=== PATIENT | female | born 1980 | race Caucasian/White ===

== ENCOUNTER 2023-10-28 13:29 | Emergency (ER) | payer BC, SELFPAY ==
[2023-10-28 13:32] VITALS: BP 105/61; PULSE 81; RESP 18; TEMP 36.4; O2SAT 97; BMI 41.0
--- NOTE | 2023-10-28 14:43 | CT_ITS ---
FINAL REPORT CLINICAL HISTORY: R flank pain, known cyst COMPARISON: None FINDINGS: CT OF THE ABDOMEN AND PELVIS WITH CONTRAST Axial CT images of the abdomen and pelvis were obtained after the administration of IV contrast. Coronal and sagittal reformatted images were also obtained and reviewed. This study was performed with techniques to keep radiation doses as low as reasonably achievable (ALARA). Individualized dose reduction techniques using automated exposure control or adjustment of mA and/or kV according to the patient's size were employed. Abdomen: There is mild atelectasis in the left lung base.. The heart is normal in size. The liver has an unremarkable appearance, without evidence of mass or biliary ductal dilatation. The spleen is unremarkable. No adrenal mass is present. The pancreas has an unremarkable appearance. There are bilateral small nonobstructing renal stones measuring up to 4 mm in size. No evidence of hydronephrosis is seen. There is a 12 mm cyst present in the anterior aspect of the right kidney. The aorta is normal in caliber. There is no free fluid or adenopathy. No mass or abnormal fluid collection is seen. Pelvis: The appendix is normal in appearance. The urinary bladder is unremarkable. No inflammatory process is seen. There are several borderline in size inguinal nodes present, nonspecific. The uterus has been surgically resected. There is no evidence of bowel obstruction. IMPRESSION: Bilateral small nonobstructing renal stones measuring up to 4 mm in size, without evidence of hydronephrosis. 12 mm cyst anterior aspect right kidney. Several borderline in size inguinal nodes bilateral. Reviewed, Interpreted and Dictated by Joey Cook III, MD Transcribed by Opal Rojas Authenticated and [facility]
--- NOTE | 2023-10-28 14:44 | HMH.EDGENADL ---
Discharge Plan Disposition Patient Disposition: Home, Self-Care Prescriptions Prescriptions: New nystatin 100,000 unit/gram cream 1 applic topical BID Qty: 15 0RF No Action citalopram 20 mg tablet 20 mg PO DAILY topiramate [Trokendi XR] 50 mg capsule,extended release 24hr PO DAILY levothyroxine [Synthroid] 125 mcg tablet 125 mcg PO DAILY Otezla 30 mg tablet PO BID omeprazole 40 mg capsule,delayed release(DR/EC) 40 mg PO DAILY meloxicam 15 mg tablet 15 mg PO DAILY buspirone 7.5 mg tablet 7.5 mg PO BID PRN (Reason: anxiety) yhutstgmyinctbl-tokdtmmoa-VU [Bromfed DM] 2-30-10 mg/5 mL syrup 10 ml PO Q4-6H PRN (Reason: cold symptoms) Qty: 118 1RF prednisone 10 mg tablets,dose pack See Rx Instructions PO PER PKG DIR Qty: 21 0RF Rx Instructions: PO PER PKG DIR cephalexin 500 mg capsule 500 mg PO BID 10 Days Qty: 20 0RF Referrals Follow up/Referrals: Janie Narayanan APRN [Primary Care Provider] - See instructions Activity Restrictions/Add. Instructions Additional Instructions/Restrictions: Apply the prescribed nystatin cream to the skin between the breasts as directed. As discussed, talk to your psoriasis doctor about further management of yeast infection on the skin in this area. Call your family doctor to establish care for this visit to the emergency department and schedule follow-up within 48 hours to ensure improvement. If you have any worsening of your condition or any other concerning signs or symptoms, return to the emergency department or your primary care doctor for further evaluation. Clinical Impressions Clinical Impression: Acute abdominal pain in right flank, Yeast dermatitis Stand Alone Forms Stand Alone Forms: Work/School Release Discharge ED Provider: Ankush Mascorro General Adult HPI <Del Mccann MD - Last Filed: 10/28/23 15:44> General Chief complaint: PAIN Stated complaint: pain in right side and pelvis Time Seen by Provider: 10/28/23 14:27 Mode of Arrival: Ambulatory Source of Information: Patient Limitations: No Limitations Description of Symptoms (Recalled from ER Triage Doc. by RN): Patient complaint of ongoing right rib and pelvic pain. States she has a cyst on her kidney and has been dealing with this pain since May. States her pain got worse on Tuesday. History of Present Illness HPI narrative: 43-year-old female presents to the ER for evaluation of right flank pain. Patient also states she has mild right lower quadrant pain. Patient states she was diagnosed with a cyst on her kidney back in May but she was not able to have follow-up so she does not know what has happened with it. Patient states her pain has been progressive since Tuesday. She states her right ribs lower are tender to the touch. She also states she is having pain with peeing but no blood in the urine. She states she recently had strep with made her psoriasis flareup. She states she has significant rash between her breasts which is different than her psoriasis rash. Patient states her right lower quadrant is mildly painful as well. She is not having any nausea, vomiting, or diarrhea. Related Data Home Medications Medication Instructions Recorded Confirmed apremilast 30 mg tablet (Otezla) mg PO BID psoriatic arthritis 09/29/23 10/11/23 buspirone 7.5 mg tablet 7.5 mg PO BID PRN anxiety 09/29/23 10/11/23 citalopram 20 mg tablet 20 mg PO DAILY anxiety/depression 09/29/23 10/11/23 levothyroxine 125 mcg tablet 125 mcg PO DAILY thyroid 09/29/23 10/11/23 (Synthroid) meloxicam 15 mg tablet 15 mg PO DAILY Arthritis 09/29/23 10/11/23 omeprazole 40 mg capsule,delayed 40 mg PO DAILY GERD 09/29/23 10/11/23 release topiramate 50 mg capsule,extended mg PO DAILY migraines 09/29/23 10/11/23 release 24 hr (Trokendi XR) Previous Rx's Medication Instructions Recorded wemoczkiibthsqr-vfclntxcfmylgrx-NT 10 ml PO Q4-6H PRN cold symptoms 10/03/23 2 mg-30 mg-10 mg/5 mL oral syrup #118 mL (Bromfed DM) cephalexin 500 mg capsule 500 mg PO BID 10 days #20 caps 10/11/23 prednisone 10 mg tablets in a dose See Rx Instructions PO PER PKG DIR 10/11/23 pack #21 tabs nystatin 100,000 unit/gram topical 1 applic topical BID #15 grams 10/28/23 cream Allergies Allergy/AdvReac Type Severity Reaction Status Date / Time AMOXICILLIN Allergy Intermediate I-RASH Uncoded 09/29/23 10:17 PENICILLIN Allergy Intermediate I-RASH Uncoded 09/29/23 10:17 [facility] <Del Mccann MD - Last Filed: 10/28/23 15:44> [facility] Disclaimer: The information contained in this section may have been updated after the patient was seen, as this information can be updated by other users. Medical History Anxiety Depression GERD (gastroesophageal reflux disease) Migraines Thyroid nodule Surgical History H/O adenoidectomy H/O hernia repair 2005 H/O partial thyroidectomy History of x4 History of cholecystectomy History of hysterectomy 1999 History of placement of ear tubes History of tonsillectomy Family History Mother Diabetes Hypertension Stroke Father Diabetes Hypertension Social History Smoking Status: Current every day smoker tobacco type: e-cigarettes alcohol intake: never substance use type: denies use and former substance user current occupational status: employed Travel in the last 8 weeks: None household members: spouse, children and other housing: house marital status: <Del Mccann MD - Last Filed: 10/28/23 15:44> ROS Obtained: Yes All systems reviewed & no additional complaints except as documented Constitutional Constitutional: Denies chills, Denies fever(s), Denies headache(s) and Denies weakness Eyes Eyes: Denies change in vision ENT Ears, Nose, Mouth, and Throat: Denies dizziness, Denies headache(s), Denies nasal congestion and Denies sore throat Cardiovascular Cardiovascular: Denies chest pain, Denies dyspnea and Denies leg edema Respiratory Respiratory: Denies cough and Denies dyspnea Gastrointestinal Gastrointestingal: Reports abdominal pain; Denies constipation, diarrhea, nausea or vomiting Genitourinary Female Genitourinary: Reports dysuria and Reports flank pain Musculoskeletal Musculoskeletal: Denies arthralgias, Denies myalgias, Denies numbness and Denies tingling Integumentary/Breasts Skin/Breast: Denies change in pigmentation Neurologic Neurologic: Denies dizziness, Denies headache(s), Denies numbness, Denies tingling and Denies weakness Physical Exam <Del Mccann MD - Last Filed: 10/28/23 15:44> General General appearance: alert and in no apparent distress Head Head exam: atraumatic and normocephalic Eye Eye exam: Present PERRL and EOMI ENT ENT exam: Present mucous membranes moist Neck Neck exam: Present normal inspection and full ROM Chest Chest inspection: Present symmetric chest wall rise and tenderness (Right inferior, lateral chest wall tenderness) Respiratory Respiratory exam: Absent respiratory distress or stridor Cardiovascular Cardiovascular exam: Present regular rate and normal rhythm Abdominal Exam Abdominal exam: Present soft and tenderness (Right lower quadrant and right upper quadrant); Absent distention, guarding or rebound Extremities Exam Extremities exam: Present full ROM Back Exam Back exam: Present CVA tenderness (R); Absent CVA tenderness (L) Neurological Exam Neurological exam: Present alert and oriented X3; Absent motor sensory deficit Psychiatric Psychiatric exam: Present normal affect and normal mood Skin Skin exam: Present warm, dry and rash (Significant psoriatic rash all over the body, patient has findings of yeast dermatitis between the breasts) Medical Decision Making <Del Mccann MD - Last Filed: 10/28/23 15:44> Robin Inquiry Pt receiving controlled substance: No Vital Signs: 10/28/23 13:32 10/28/23 16:30 10/28/23 17:38 Temperature 97.6 F 97.6 F Temperature Source Oral Oral Pulse Rate 77 77 Pulse Rate [Radial] 81 Respiratory Rate 18 12 12 Blood Pressure 95/46 L 95/46 L Blood Pressure [Right Arm] 105/61 L Blood Pressure Mean [Right Arm] 75 Blood Pressure Source Automatic Cuff Blood Pressure Source [Right Arm] Automatic Cuff Blood Pressure Position Sitting Blood Pressure Position [Right Arm] Sitting 02 Sat by Pulse Oximetry 97 97 Oxygen Delivery Method Room Air Room Air Room Air Lab Data Lab Results 10/28/23 14:49: WBC 8.7, RBC 4.46, Hgb 12.8, Hct 37.0, MCV 83.0, MCH 28.7, MCHC 34.6, RDW 14.6, Plt Count 277, MPV 7.6, Neut % (Auto) 67.1, Lymph % (Auto) 24.9, [place] % (Auto) 3.4, Eos % (Auto) 4.3, Baso % (Auto) 0.3, Neut # (Auto) 5.8, Lymph # (Auto) 2.2, [place] # (Auto) 0.3, Eos # (Auto) 0.4, Baso # (Auto) 0.0, Sodium 140, Potassium 3.9, Chloride 111 H, Carbon Dioxide 26, Anion Gap 6.9, BUN 15, Creatinine 0.70, Estimated Creat Clear 177, Estimated GFR 91, Est GFR ( Amer) 111, Glucose 126 H, Calcium 8.6, Total Bilirubin 0.5, AST 26, ALT 26, Alkaline Phosphatase 105, Total Protein 7.1, Albumin 3.9, Globulin 3.2, Albumin/Globulin Ratio 1.2 10/28/23 15:00: Urine Color Yellow, Urine Appearance Clear, Urine pH 7.5, Ur Specific [place] 1.020, Urine Protein Negative, Urine Glucose (UA) Negative, Urine Ketones Negative, Urine Blood Negative, Urine Nitrate Negative, Urine Bilirubin Negative, Urine Urobilinogen 0.2, Ur Leukocyte Esterase Negative, Urine RBC Occasional, Urine WBC Occasional, Ur Squamous Epith Cells Occasional, Amorphous Sediment 2+, Urine Bacteria Trace 10/28/23 14:49 10/28/23 14:49 Orders (Tests/Meds): ED MEDICATIONS Discontinued Medications Generic Name Dose Route Start Last Admin Trade Name Sandeepq PRN Reason Stop Dose Admin Lactated Ringer's 1,000 mls @ 999 mls/hr 10/28/23 14:43 10/28/23 15:00 Lactated Ringer's 1000 Ml Bag IV 10/28/23 15:43 999 mls/hr .Q1H1M ONE Administration Iopamidol 75 ml 10/28/23 15:19 10/28/23 15:19 Iopamidol-370 (76%);100ml Bottle IV 10/28/23 15:20 75 ml ONCE ONE Administration Ketorolac Tromethamine 15 mg 10/28/23 14:43 10/28/23 15:00 Ketorolac 30mg/Ml Vial IV 10/28/23 14:44 15 mg ONCE ONE Administration Sodium Chloride 10 ml 10/28/23 15:19 Sodium Chloride 0.9% 10ml Syr (Rad Only) IV 11/27/23 15:18 NEEDED PRN Maintain IV Site ORDERS Category Date Time Status CT abdomen pelvis w con Stat Cat Scan 10/28/23 14:43 Completed CBC w/Auto Diff [Complete Blood Count Auto Diff] Stat Lab 10/28/23 14:49 Completed CMP [Comprehensive Metabolic Panel] Stat Lab 10/28/23 14:49 Completed Urinalysis and Microscopic Stat Lab 10/28/23 15:00 Completed Medical Decision Narrative: In summary, this 43year old female presents to the emergency department today with right flank/right lower quadrant abdominal pain. On initial evaluation patient is hemodynamically stable, afebrile, exam notable for right upper quadrant and right lower quadrant tenderness to palpation without guarding or rebound, nonacute abdomen, right CVA tenderness and superficial right inferior lateral rib tenderness. Patient also has significant psoriatic rash over large portions of the body but also has findings of yeast dermatitis between the breasts. Differential diagnosis includes but is not limited to renal cyst, nephrolithiasis, pyelonephritis, urinary tract infection, appendicitis, colitis. Based on these concerns, I ordered urine studies, CT imaging, basic labs. Patient received Toradol, IV fluids for treatment. Labs personally reviewed demonstrate no leukocytosis or anemia, CBC normal, CMP with mild hyperchloremia, nonspecific, nonactionable, no findings of kidney dysfunction or liver dysfunction. UA pending. CT abdomen personally interpreted does demonstrate calcifications within the region of the terminal ileum, potentially appendicolith. She also has 2 abnormalities on the right kidney that appear cystic. Radiology read is pending at the time of physician handoff. Patient handed off to Dr. Mascorro at physician handoff for further management and disposition pending urinalysis and CT imaging results. <Ankush Mascorro MD - Last Filed: 10/28/23 18:06> Vital Signs: 10/28/23 13:32 10/28/23 16:30 10/28/23 17:38 Temperature 97.6 F 97.6 F Temperature Source Oral Oral Pulse Rate 77 77 Pulse Rate [Radial] 81 Respiratory Rate 18 12 12 Blood Pressure 95/46 L 95/46 L Blood Pressure [Right Arm] 105/61 L Blood Pressure Mean [Right Arm] 75 Blood Pressure Source Automatic Cuff Blood Pressure Source [Right Arm] Automatic Cuff Blood Pressure Position Sitting Blood Pressure Position [Right Arm] Sitting 02 Sat by Pulse Oximetry 97 97 Oxygen Delivery Method Room Air Room Air Room Air Lab Data Lab Results 10/28/23 14:49: WBC 8.7, RBC 4.46, Hgb 12.8, Hct 37.0, MCV 83.0, MCH 28.7, MCHC 34.6, RDW 14.6, Plt Count 277, MPV 7.6, Neut % (Auto) 67.1, Lymph % (Auto) 24.9, [place] % (Auto) 3.4, Eos % (Auto) 4.3, Baso % (Auto) 0.3, Neut # (Auto) 5.8, Lymph # (Auto) 2.2, [place] # (Auto) 0.3, Eos # (Auto) 0.4, Baso # (Auto) 0.0, Sodium 140, Potassium 3.9, Chloride 111 H, Carbon Dioxide 26, Anion Gap 6.9, BUN 15, Creatinine 0.70, Estimated Creat Clear 177, Estimated GFR 91, Est GFR ( Amer) 111, Glucose 126 H, Calcium 8.6, Total Bilirubin 0.5, AST 26, ALT 26, Alkaline Phosphatase 105, Total Protein 7.1, Albumin 3.9, Globulin 3.2, Albumin/Globulin Ratio 1.2 10/28/23 15:00: Urine Color Yellow, Urine Appearance Clear, Urine pH 7.5, Ur Specific [place] 1.020, Urine Protein Negative, Urine Glucose (UA) Negative, Urine Ketones Negative, Urine Blood Negative, Urine Nitrate Negative, Urine Bilirubin Negative, Urine Urobilinogen 0.2, Ur Leukocyte Esterase Negative, Urine RBC Occasional, Urine WBC Occasional, Ur Squamous Epith Cells Occasional, Amorphous Sediment 2+, Urine Bacteria Trace Orders (Tests/Meds): ED MEDICATIONS Discontinued Medications Generic Name Dose Route Start Last Admin Trade Name Tania PRN Reason Stop Dose Admin Lactated Ringer's 1,000 mls @ 999 mls/hr 10/28/23 14:43 10/28/23 15:00 Lactated Ringer's 1000 Ml Bag IV 10/28/23 15:43 999 mls/hr .Q1H1M ONE Administration Iopamidol 75 ml 10/28/23 15:19 10/28/23 15:19 Iopamidol-370 (76%);100ml Bottle IV 10/28/23 15:20 75 ml ONCE ONE Administration Ketorolac Tromethamine 15 mg 10/28/23 14:43 10/28/23 15:00 Ketorolac 30mg/Ml Vial IV 10/28/23 14:44 15 mg ONCE ONE Administration Sodium Chloride 10 ml 10/28/23 15:19 Sodium Chloride 0.9% 10ml Syr (Rad Only) IV 11/27/23 15:18 NEEDED PRN Maintain IV Site ORDERS Category Date Time Status CT abdomen pelvis w con Stat Cat Scan 10/28/23 14:43 Completed CBC w/Auto Diff [Complete Blood Count Auto Diff] Stat Lab 10/28/23 14:49 Completed CMP [Comprehensive Metabolic Panel] Stat Lab 10/28/23 14:49 Completed Urinalysis and Microscopic Stat Lab 10/28/23 15:00 Completed Medical Decision Narrative: In summary, this 43year old female presents to the emergency department today with right flank/right lower quadrant abdominal pain. On initial evaluation patient is hemodynamically stable, afebrile, exam notable for right upper quadrant and right lower quadrant tenderness to palpation without guarding or rebound, nonacute abdomen, right CVA tenderness and superficial right inferior lateral rib tenderness. Patient also has significant psoriatic rash over large portions of the body but also has findings of yeast dermatitis between the breasts. Differential diagnosis includes but is not limited to renal cyst, nephrolithiasis, pyelonephritis, urinary tract infection, appendicitis, colitis. Based on these concerns, I ordered urine studies, CT imaging, basic labs. Patient received Toradol, IV fluids for treatment. Labs personally reviewed demonstrate no leukocytosis or anemia, CBC normal, CMP with mild hyperchloremia, nonspecific, nonactionable, no findings of kidney dysfunction or liver dysfunction. UA pending. CT abdomen personally interpreted does demonstrate calcifications within the region of the terminal ileum, potentially appendicolith. She also has 2 abnormalities on the right kidney that appear cystic. Radiology read is pending at the time of physician handoff. Patient handed off to Dr. Mascorro at physician handoff for further management and disposition pending urinalysis and CT imaging results. Subha: I assume primary responsibility for this patient after signout from previous physician. On my evaluation, patient sitting comfortably in chair, on her phone, no acute complaints. Hemodynamically stable, afebrile, normotensive. Independently interpreted workup, nonactionable CBC or chemistry. Urinalysis unconcerning. CT abdomen pelvis with no acute actionable findings, but she does have appendicolith without distal appendicitis, intrarenal kidney stones without obstruction, and right renal cysts. These were relayed to patient. Because patient at baseline without signs or symptoms of clinical decompensation, deemed appropriate for discharge. Results were relayed to patient who voiced understanding and were agreeable to outpatient management and follow up. At the time of discharge the patient was hemodynamically stable, tolerating PO, and mobilizing appropriately. Critical Care <Del Mccann MD - Last Filed: 10/28/23 15:44> Critical Care Time Critical Care Time: No
[2023-10-28 14:58] LABS: Basophils % 0.3 % (0.1-2.0); Eosinophils # 0.4 K/mm3 (0.0-0.4); Eosinophils % 4.3 % (0.1-12.0); Hemoglobin 12.8 g/dL (12.2-16.2); Lymphocytes # 2.2 K/mm3 (0.7-4.5); Lymphocytes % 24.9 % (10-50); Mean Corpuscular HGB Conc 34.6 g/dL (31.8-35.4); Mean Corpuscular Hemoglobin 28.7 pg (27.0-31.2); Mean Platelet Volume 7.6 fl (7.4-10.4); Monocytes # 0.3 K/mm3 (0.1-1.0); Monocytes % 3.4 % (1.7-9.3); Neutrophils # 5.8 K/mm3 (1.8-7.8); Neutrophils % 67.1 % (37.0-80.0); Platelet Count 277 K/mm3 (142-424); Red Blood Count 4.46 M/mm3 (4.20-5.40); Red Cell Distribution Width 14.6 % (11.5-17.5); White Blood Count 8.7 K/mm3 (4.8-10.8)
[2023-10-28] MEDS: KETOROLAC 30MG/ML VIAL 15 MG IV (15:00)
[2023-10-28] MEDS: LACTATED RINGERS 1000ML 1,000 ML 999 ML IV (15:00)
[2023-10-28 15:02] LABS: Chloride 111 mmol/L (98-107); Potassium 3.9 mmoL/L (3.5-5.1); Sodium 140 mmol/L (136-145)
[2023-10-28 15:05] LABS: Alanine Aminotransferase 26 U/L (12-78); Albumin Level 3.9 g/dl (3.5-5.0); Albumin/Globulin Ratio 1.2 (1.1-1.8); Alkaline Phosphatase 105 U/L (38-126); Anion Gap 6.9 mEq/L (5-15); Aspartate Amino Transferase 26 U/L (14-36); Bilirubin,Total 0.5 mg/dl (0.2-1.3); Blood Urea Nitrogen 15 mg/dl (7-17); Calcium 8.6 mg/dl (8.4-10.2); Carbon Dioxide 26 mmol/L (22.0-30.0); Creatinine Clearance Estimated 177 mL/min (50-200); Estimated Glomerular Filt Rate 91 ml/min (>60); GFR (African American) 111 ML/MIN (>60); Globulin 3.2 g/dL (1.3-3.2); Glucose 126 mg/dl (74-100); Total Protein,Serum 7.1 g/dl (6.3-8.2)
[2023-10-28 15:13] LABS: Microscopic, Urine URINE MICROSCOPIC (MICROSCOPIC)
[2023-10-28 15:16] LABS: Appearance,Urine CLEAR (Clear); Bilirubin,Urine Negative (Negative); Blood, Urine Negative (Negative); Color,Urine YELLOW (Yellow); Glucose,Urine (UA) Negative (Negative); Ketones,Urine Negative (Negative); Leukocyte Esterase,Urine Negative (Negative); Nitrate,Urine Negative (Negative); PH,Urine 7.5 (5.0-8.5); Protein,Urine Negative (Negative); Urobilinogen,Urine 0.2 EU/dl (0.2)
[2023-10-28] MEDS: IOPAMIDOL-370 (76%);100ML BOTTLE 75 ML IV (15:19)
[2023-10-28 16:02] LABS: Amorphous Sediment,Urine 2+ /lpf; Bacteria,Urine Trace /lpf; RBC,Urine Occasional #/hpf (0-3); Squamous Epithelial Cell,Urine Occasional #/hpf (0-5); WBC,Urine Occasional #/hpf (0-3)
[2023-10-28 16:30] VITALS: BP 95/46; PULSE 77; RESP 12; O2SAT 97
--- NOTE | 2023-10-28 16:49 | PC.NURSE ---
rounded on pt nothing needed at this time unhooked from empty bag of fluids,call light at chair side
[2023-10-28 17:38] VITALS: BP 95/46; PULSE 77; RESP 12; TEMP 36.4; O2SAT 97
== END 2023-10-28 17:39 | disposition home or self-care (01) ==
PROVIDERS: Emergency Medicine; Emergency Provider Emergency Medicine; PCP Nurse Practitioner Family
DX: R10.31 Right lower quadrant pain (principal); M54.59 Other low back pain; B37.2 Candidiasis of skin and nail; K21.9 Gastro-esophageal reflux disease without esophagitis; E03.9 Hypothyroidism, unspecified; F17.290 Nicotine dependence, other tobacco product, uncomplicated
CPT/HCPCS: 74177; 80053; 81001; 85025; 96361; 96374; 99284; Q9967

== ENCOUNTER 2023-10-31 12:01 | Emergency (ER) | payer BC, SELFPAY ==
[2023-10-31 12:02] VITALS: BP 124/87; PULSE 75; RESP 18; TEMP 36.7; O2SAT 96; BMI 41.0
--- NOTE | 2023-10-31 12:09 | PC.NURSE ---
DR AUSTIN AT BEDSIDE
--- NOTE | 2023-10-31 12:17 | CT_ITS ---
FINAL REPORT TECHNIQUE: After the administration of oral and intravenous contrast, axial images were obtained through the abdomen and pelvis by computed tomography. The study was performed with techniques to keep radiation dose as low as reasonably achievable, (ALARA). Individual dose reduction techniques using automated exposure control or adjustment of mA and/or kV according to the patient's size were employed. CLINICAL HISTORY: RUQ, RLQ, suprapubic pain COMPARISON: 10/28/2023 FINDINGS: Abdomen: The lung bases are clear. The liver parenchyma is homogeneous. The gallbladder is surgically absent. The spleen, pancreas, and adrenals appear unremarkable. The aorta is normal in caliber. There is no free fluid or adenopathy. The kidneys revealed bilateral nonobstructing less than 4 mm in size renal stones. There is a 12 mm cyst in the anterior aspect of the right kidney, stable. There is a hyperdense focus in the left mid abdominal small bowel, nonobstructing, that is well-defined and may represent a pill fragment. Pelvis: The appendix is normal. The urinary bladder is unremarkable. There is no free fluid or adenopathy. IMPRESSION: No acute intra-abdominal process. Hyperdense focus in the left mid abdominal small bowel, nonobstructing, well-defined, may represent a pill fragment. Gallbladder surgically absent. Reviewed, Interpreted and Dictated by Arsenio Harrison MD Transcribed by Opal Rojas Authenticated and [facility]
--- NOTE | 2023-10-31 12:19 | HMH.EDGENADL ---
Discharge Plan Disposition Patient Disposition: Home, Self-Care Condition: Good Prescriptions Prescriptions: New cefdinir 300 mg capsule 300 mg PO BID 10 Days Qty: 20 0RF No Action citalopram 20 mg tablet 20 mg PO DAILY topiramate [Trokendi XR] 50 mg capsule,extended release 24hr PO DAILY levothyroxine [Synthroid] 125 mcg tablet 125 mcg PO DAILY Otezla 30 mg tablet PO BID omeprazole 40 mg capsule,delayed release(DR/EC) 40 mg PO DAILY meloxicam 15 mg tablet 15 mg PO DAILY buspirone 7.5 mg tablet 7.5 mg PO BID PRN (Reason: anxiety) [id number]-[id number] [Bromfed DM] 2-30-10 mg/5 mL syrup 10 ml PO Q4-6H PRN (Reason: cold symptoms) Qty: 118 1RF prednisone 10 mg tablets,dose pack See Rx Instructions PO PER PKG DIR Qty: 21 0RF Rx Instructions: PO PER PKG DIR cephalexin 500 mg capsule 500 mg PO BID 10 Days Qty: 20 0RF nystatin 100,000 unit/gram cream 1 applic topical BID Qty: 15 0RF Referrals Follow up/Referrals: Janie Narayanan APRN [Primary Care Provider] - See instructions Activity Restrictions/Add. Instructions Additional Instructions/Restrictions: You have been evaluated in the ED for your complaints. You may follow-up with your PCP in the next 3 to 5 days. Please return to ED for any new or worsening symptoms. I have written for cefdinir to treat your urinary tract infection. Please take this medication as prescribed. Also recommend continuation of Tylenol 1000 mg every 5-6 hours as needed for discomfort. Clinical Impressions Clinical Impression: UTI (urinary tract infection), Right sided abdominal pain, Dysuria Instructions Patient Instructions: Urinary Tract Infection, DI for Acute Abdominal Pain Discharge ED Provider: Cornell Stewart Adult HPI General Chief complaint: Abdominal Pain Stated complaint: Rt side pain, nausea Time Seen by Provider: 10/31/23 12:07 Mode of Arrival: Ambulatory Limitations: No Limitations Description of Symptoms (Recalled from ER Triage Doc. by RN): PT C/O ONGOING RIGHT ABDOMINAL PAIN SINCE TUESDAY. STATES SHE WAS SEEN IN THIS ED ON TUESDAY, DIAGNOSED WITH KIDNEY STONES AND APPENDIX STONE REPORTS OCCASIONAL FEVER History of Present Illness HPI narrative: 43-year-old female with past medical history significant for anxiety, depression, GERD, migraines, hysterectomy, nephrolithiasis, presents today for evaluation concerning right flank, right upper quadrant and right lower quadrant abdominal pain that has been persistent over the past few days. She reports that she was recently seen in the ED on 10/28 for similar complaints and notes that she was diagnosed with kidney stones and possible appendix stone. States that she has been taking Tylenol with no relief. She states that she has been waking up with with sweats and has also had nausea without emesis. Reports dysuria and mild hematuria. Denies any chest pain or shortness of breath or any other associated symptoms at this time. Related Data Home Medications Medication Instructions Recorded Confirmed apremilast 30 mg tablet (Otezla) mg PO BID psoriatic arthritis 09/29/23 10/11/23 buspirone 7.5 mg tablet 7.5 mg PO BID PRN anxiety 09/29/23 10/11/23 citalopram 20 mg tablet 20 mg PO DAILY anxiety/depression 09/29/23 10/11/23 levothyroxine 125 mcg tablet 125 mcg PO DAILY thyroid 09/29/23 10/11/23 (Synthroid) meloxicam 15 mg tablet 15 mg PO DAILY Arthritis 09/29/23 10/11/23 omeprazole 40 mg capsule,delayed 40 mg PO DAILY GERD 09/29/23 10/11/23 release topiramate 50 mg capsule,extended mg PO DAILY migraines 09/29/23 10/11/23 release 24 hr (Trokendi XR) Previous Rx's Medication Instructions Recorded buhkiemrezwaimr-gtbgmspvvgmhgvt-NN 10 ml PO Q4-6H PRN cold symptoms 10/03/23 2 mg-30 mg-10 mg/5 mL oral syrup #118 mL (Bromfed DM) cephalexin 500 mg capsule 500 mg PO BID 10 days #20 caps 10/11/23 prednisone 10 mg tablets in a dose See Rx Instructions PO PER PKG DIR 10/11/23 pack #21 tabs nystatin 100,000 unit/gram topical 1 applic topical BID #15 grams 10/28/23 cream cefdinir 300 mg capsule 300 mg PO BID 10 days #20 caps 10/31/23 Allergies Allergy/AdvReac Type Severity Reaction Status Date / Time AMOXICILLIN Allergy Intermediate I-RASH Uncoded 09/29/23 10:17 PENICILLIN Allergy Intermediate I-RASH Uncoded 09/29/23 10:17 [facility] Disclaimer: The information contained in this section may have been updated after the patient was seen, as this information can be updated by other users. Medical History Anxiety Depression GERD (gastroesophageal reflux disease) Migraines Thyroid nodule Surgical History H/O adenoidectomy H/O hernia repair 2005 H/O partial thyroidectomy History of x4 History of cholecystectomy History of hysterectomy 1999 History of placement of ear tubes History of tonsillectomy Family History Mother Diabetes Hypertension Stroke Father Diabetes Hypertension Social History Smoking Status: Former smoker tobacco type: e-cigarettes alcohol intake: never substance use type: denies use and former substance user current occupational status: employed Travel in the last 8 weeks: None household members: spouse, children and other housing: house marital status: ROS Obtained: Yes All systems reviewed & no additional complaints except as documented Physical Exam General General appearance: alert and in no apparent distress Head Head exam: atraumatic and normocephalic Eye Eye exam: Present normal appearance, PERRL and EOMI ENT ENT exam: Present normal oropharynx and mucous membranes moist Neck Neck exam: Present full ROM; Absent meningismus Respiratory Respiratory exam: Absent respiratory distress, wheezes, stridor or accessory muscle use Cardiovascular Cardiovascular exam: Present normal rhythm Abdominal Exam Abdominal exam: Present soft, tenderness and other (Mild right CVA tenderness); Absent distention, guarding, rebound or rigidity Abdominal tenderness: Present RUQ, RLQ and suprapubic Neurological Exam Neurological exam: Present alert, oriented X3 and CN II-XII intact; Absent motor sensory deficit Psychiatric Psychiatric exam: Present normal affect and normal mood Skin Skin exam: Present warm and dry Medical Decision Making Medical Records Medical records reviewed: Yes I reviewed the patient's medical records. Robin Inquiry Pt receiving controlled substance: No Robin was queried for this patient: No Vital Signs: 10/31/23 12:02 10/31/23 12:55 Temperature 98.1 F Temperature Source Oral Pulse Rate 63 Pulse Rate [Radial] 75 Respiratory Rate 18 Blood Pressure 120/88 Blood Pressure [Right Arm] 124/87 Blood Pressure Mean [Right Arm] 99 Blood Pressure Source [Right Arm] Automatic Cuff Blood Pressure Position [Right Arm] Sitting 02 Sat by Pulse Oximetry 96 99 Oxygen Delivery Method Room Air Room Air Lab Data Lab Results 10/31/23 12:20: Urine Color Yellow, Urine Appearance Clear, Urine pH 6.0, Ur Specific [place] 1.025, Urine Protein Negative, Urine Glucose (UA) Negative, Urine Ketones Negative, Urine Blood Negative, Urine Nitrate Negative, Urine Bilirubin Negative, Urine Urobilinogen 0.2, Ur Leukocyte Esterase Negative, Urine RBC None, Urine WBC 10-20, Ur Squamous Epith Cells 3-5, Urine Bacteria 2+ 10/31/23 12:28: WBC 9.1, RBC 4.63, Hgb 13.2, Hct 38.8, MCV 83.8, MCH 28.6, MCHC 34.1, RDW 14.7, Plt Count 274, MPV 7.9, Neut % (Auto) 65.0, Lymph % (Auto) 26.9, [place] % (Auto) 3.6, Eos % (Auto) 4.1, Baso % (Auto) 0.4, Neut # (Auto) 5.9, Lymph # (Auto) 2.4, [place] # (Auto) 0.3, Eos # (Auto) 0.4, Baso # (Auto) 0.0, Sodium 140, Potassium 3.9, Chloride 110 H, Carbon Dioxide 28, Anion Gap 5.9, BUN 11 D, Creatinine 0.70, Estimated Creat Clear 177, Estimated GFR 91, Est GFR ( Amer) 111, Glucose 108 H, Lactate 1.3, Calcium 8.9, Total Bilirubin 0.4, AST 24, ALT 26, Alkaline Phosphatase 105, Total Protein 7.3, Albumin 4.0, Globulin 3.3 H, Albumin/Globulin Ratio 1.2, Lipase 73 10/31/23 12:28 10/31/23 12:28 Orders (Tests/Meds): ED MEDICATIONS Generic Name Dose Route Start Last Admin Trade Name Freq PRN Reason Stop Dose Admin Sodium Chloride 10 ml 10/31/23 12:36 Sodium Chloride 0.9% 10ml Syr (Rad Only) IV 11/30/23 12:35 NEEDED PRN Maintain IV Site Discontinued Medications Generic Name Dose Route Start Last Admin Trade Name Freq PRN Reason Stop Dose Admin Lactated Ringer's 500 mls @ 999 mls/hr 10/31/23 12:14 10/31/23 12:32 Lactated Ringer's 1000 Ml Bag IV 10/31/23 12:44 999 mls/hr .Q31M ONE Administration Iopamidol 75 ml 10/31/23 12:36 10/31/23 12:37 Iopamidol-370 (76%);100ml Bottle IV 10/31/23 12:37 75 ml ONCE ONE Administration Morphine Sulfate 4 mg 10/31/23 12:14 10/31/23 12:31 Morphine 4mg/Ml Syringe IV 10/31/23 12:15 4 mg ONCE ONE Administration Ondansetron HCl 4 mg 10/31/23 12:14 10/31/23 12:31 Ondansetron 4mg/2ml Vial IV 10/31/23 12:15 4 mg ONCE ONE Administration ORDERS Category Date Time Status CT abdomen pelvis w con Stat Cat Scan 10/31/23 12:17 Taken CBC w/Auto Diff [Complete Blood Count Auto Diff] Stat Lab 10/31/23 12:28 Completed CMP [Comprehensive Metabolic Panel] Stat Lab 10/31/23 12:28 Completed Lactic Acid Stat Lab 10/31/23 12:28 Completed Lipase Stat Lab 10/31/23 12:28 Completed UA [Urinalysis and Microscopic] Stat Lab 10/31/23 12:20 Completed Urine Culture Stat Micro 10/31/23 12:20 Received Medical Decision Narrative: 43-year-old female with past medical history significant for anxiety, depression, GERD, migraines, hysterectomy, cholecystectomy, nephrolithiasis, presents today for evaluation concerning right flank, right upper quadrant and right lower quadrant abdominal pain that has been persistent over the past few days. She reports that she was recently seen in the ED on 10/28 for similar complaints and notes that she was diagnosed with kidney stones and possible appendix stone. Has also had nausea without emesis. Reports night sweats. Has also had dysuria and mild hematuria. On assessment she was hemodynamically stable and in no acute distress. Afebrile. She did have right upper quadrant, right lower quadrant and suprapubic tenderness to palpation of the abdomen. On further palpation she appeared to be generally tender. Mild right CVA tenderness. Other physical exam findings unremarkable. Differential diagnoses include but not limited to nephrolithiasis, appendicitis, UTI, among others. CBC today has been nonactionable. CMP also nonactionable. Urinalysis nitrite and leukocyte esterase negative however 10-20 WBCs and 2+ bacteria present. Patient is also symptomatic therefore I will treat as a UTI. CT abdomen pelvis with no acute intra-abdominal pathology noted. Redemonstration of bilateral nonobstructing less than 4 mm renal stones. Stable 12 mm cyst in the anterior aspect of the right kidney again noted. No appendicitis. On reassessment the patient zoraida hemodynamically stable and in no acute distress. Her pain is improved at this time. Discussed with patient ED work-up and results and current plan to discharge. Will provide her with prescription for cefdinir to treat her UTI. Provided with return to ED precautions and instructions concerning PCP follow-up. Patient verbalized understanding and agreement with plan. Subsequently discharged hemodynamically stable and in no acute distress. Critical Care Critical Care Time Critical Care Time: No
[2023-10-31 12:28] LABS: Microscopic, Urine URINE MICROSCOPIC (MICROSCOPIC)
[2023-10-31] MEDS: ONDANSETRON 4MG/2ML VIAL 4 MG IV (12:31)
[2023-10-31] MEDS: MORPHINE 4MG/ML SYRINGE 4 MG IV (12:31)
[2023-10-31] MEDS: LACTATED RINGERS 1000ML 500 ML 999 ML IV (12:32)
[2023-10-31] MEDS: IOPAMIDOL-370 (76%);100ML BOTTLE 75 ML IV (12:37)
[2023-10-31 12:41] LABS: Basophils % 0.4 % (0.1-2.0); Eosinophils # 0.4 K/mm3 (0.0-0.4); Eosinophils % 4.1 % (0.1-12.0); Hematocrit 38.8 % (37.0-47.0); Hemoglobin 13.2 g/dL (12.2-16.2); Lymphocytes # 2.4 K/mm3 (0.7-4.5); Lymphocytes % 26.9 % (10-50); Mean Corpuscular HGB Conc 34.1 g/dL (31.8-35.4); Mean Corpuscular Hemoglobin 28.6 pg (27.0-31.2); Mean Corpuscular Volume 83.8 fl (81-99); Mean Platelet Volume 7.9 fl (7.4-10.4); Monocytes # 0.3 K/mm3 (0.1-1.0); Monocytes % 3.6 % (1.7-9.3); Neutrophils # 5.9 K/mm3 (1.8-7.8); Platelet Count 274 K/mm3 (142-424); Red Blood Count 4.63 M/mm3 (4.20-5.40); Red Cell Distribution Width 14.7 % (11.5-17.5); White Blood Count 9.1 K/mm3 (4.8-10.8)
[2023-10-31 12:48] LABS: Chloride 110 mmol/L (98-107)
[2023-10-31 12:49] LABS: Potassium 3.9 mmoL/L (3.5-5.1); Sodium 140 mmol/L (136-145)
[2023-10-31 12:51] LABS: Alanine Aminotransferase 26 U/L (12-78); Alkaline Phosphatase 105 U/L (38-126); Anion Gap 5.9 mEq/L (5-15); Aspartate Amino Transferase 24 U/L (14-36); Bilirubin,Total 0.4 mg/dl (0.2-1.3); Blood Urea Nitrogen 11 mg/dl (7-17); Carbon Dioxide 28 mmol/L (22.0-30.0); Creatinine Clearance Estimated 177 mL/min (50-200); Estimated Glomerular Filt Rate 91 ml/min (>60); GFR (African American) 111 ML/MIN (>60); Lactic Acid 1.3 mmol/L (0.7-2.1); Lipase 73 U/L (23-300)
[2023-10-31 12:52] LABS: Albumin/Globulin Ratio 1.2 (1.1-1.8); Calcium 8.9 mg/dl (8.4-10.2); Globulin 3.3 g/dL (1.3-3.2); Glucose 108 mg/dl (74-100); Total Protein,Serum 7.3 g/dl (6.3-8.2)
[2023-10-31 12:54] LABS: Appearance,Urine CLEAR (Clear); Bilirubin,Urine Negative (Negative); Blood, Urine Negative (Negative); Color,Urine YELLOW (Yellow); Glucose,Urine (UA) Negative (Negative); Ketones,Urine Negative (Negative); Leukocyte Esterase,Urine Negative (Negative); Nitrate,Urine Negative (Negative); Protein,Urine Negative (Negative); Specific Gravity, Urine 1.025 (1.005-1.030); Urobilinogen,Urine 0.2 EU/dl (0.2)
[2023-10-31 12:55] VITALS: BP 120/88; PULSE 63; O2SAT 99
--- NOTE | 2023-10-31 12:57 | PC.NURSE ---
Rounded on pt. No needs voiced at this time. Visitor at BS and call light within reach.
[2023-10-31 13:00] VITALS: BP 132/81; PULSE 64; O2SAT 98
--- NOTE | 2023-10-31 13:23 | PC.NURSE ---
Rounded on pt. Pt voiced no needs at this time. Call light remains within reach.
[2023-10-31 13:40] LABS: Bacteria,Urine 2+ /lpf
[2023-10-31 14:00] VITALS: BP 119/71; PULSE 58; O2SAT 95
[2023-10-31 14:40] VITALS: BP 120/78; PULSE 66; O2SAT 98
[2023-10-31 15:05] VITALS: BP 116/70; PULSE 64; RESP 18; TEMP 36.7; O2SAT 99
--- NOTE | 2023-11-03 11:06 | PC.NURSE ---
urine results discussed with , pt was DC with cefdinir, NTD at this time
== END 2023-10-31 15:06 | disposition home or self-care (01) ==
PROVIDERS: Emergency Provider Emergency Medicine; PCP Nurse Practitioner Family
DX: N39.0 Urinary tract infection, site not specified (principal); R10.11 Right upper quadrant pain; R10.31 Right lower quadrant pain; R11.0 Nausea; N20.0 Calculus of kidney; K21.9 Gastro-esophageal reflux disease without esophagitis; E04.1 Nontoxic single thyroid nodule; Z87.891 Personal history of nicotine dependence
CPT/HCPCS: 74177; 80053; 81001; 83605; 83690; 85025; 87086; 96374; 96375; 99285; J2405; Q9967

== ENCOUNTER 2023-12-23 07:52 | Outpatient (CLI) | payer BC, SELFPAY ==
[2023-12-23 16:39] LABS: Blood Urea Nitrogen 21 mg/dl (7-17); Calcium 9.2 mg/dl (8.4-10.2); Carbon Dioxide 21 mmol/L (22.0-30.0); Chloride 110 mmol/L (98-107); Chol/HDL Ratio 6.4 (1-3.5); Cholesterol 211 mg/dl (140-200); Estimated Glomerular Filt Rate 91 ml/min (>60); GFR (African American) 111 ML/MIN (>60); Glucose 110 mg/dl (74-100); HDL Cholesterol 33 mg/dl (40-60); Sodium 140 mmol/L (136-145); Triglycerides 165 mg/dl (30-150); VLDL Cholesterol 33 mg/dL (0-40)
[2023-12-23 16:40] LABS: Basophils # 0.1 K/mm3 (0-0.2); Basophils % 0.8 % (0.1-2.0); Eosinophils # 0.5 K/mm3 (0.0-0.4); Eosinophils % 5.6 % (0.1-12.0); Hematocrit 39.6 % (37.0-47.0); Hemoglobin 12.8 g/dL (12.2-16.2); Lymphocytes # 2.8 K/mm3 (0.7-4.5); Lymphocytes % 32.8 % (10-50); Mean Corpuscular HGB Conc 32.3 g/dL (31.8-35.4); Mean Corpuscular Hemoglobin 28.3 pg (27.0-31.2); Mean Corpuscular Volume 87.3 fl (81-99); Monocytes # 0.4 K/mm3 (0.1-1.0); Monocytes % 5.1 % (1.7-9.3); Neutrophils # 4.8 K/mm3 (1.8-7.8); Neutrophils % 55.7 % (37.0-80.0); Platelet Count 340 K/mm3 (142-424); Red Blood Count 4.53 M/mm3 (4.20-5.40); Red Cell Distribution Width 14.4 % (11.5-17.5); White Blood Count 8.5 K/mm3 (4.8-10.8)
[2023-12-23 16:50] LABS: Direct LDL Cholesterol 107.34 mg/dL (100-129)
[2023-12-23 16:58] LABS: 25-OH Vitamin D, Total 14.8 ng/mL (30-100)
[2023-12-23 17:09] LABS: Thyroid Stimulating Hormone 0.56 uIU/mL (0.465-4.68)
[2023-12-23 17:14] LABS: Hemoglobin A1C 5.3 % (4.0-6.0)
[2023-12-23 17:28] LABS: Vitamin B12 259 pg/mL (239-931)
== END 2023-12-23 23:59 | disposition home or self-care (01) ==
LOC: LAB.DROPOF 12-25 07:53
PROVIDERS: PCP Family Medicine; Visit Provider Nurse Practitioner Family
DX: M79.671 Pain in right foot (principal); M79.672 Pain in left foot; Z79.899 Other long term (current) drug therapy
CPT/HCPCS: 80048; 80061; 82306; 82607; 83036; 84443; 85025

== ENCOUNTER 2024-01-11 13:10 | Outpatient (CLI) | payer BC, SELFPAY ==
--- NOTE | 2024-01-11 13:13 | XR_ITS ---
FINAL REPORT CLINICAL HISTORY: foot pain x1 month bone spur COMPARISON: None FINDINGS: RIGHT FOOT: Three views show no evidence of acute displaced fracture or dislocation of the visualized bony architecture. The joint spaces appear normal. IMPRESSION: Unremarkable exam. Reviewed, Interpreted and Dictated by Reji Lei MD Transcribed by Opal Rojas Authenticated and [facility]
--- NOTE | 2024-01-11 13:13 | XR_ITS ---
FINAL REPORT CLINICAL HISTORY: foot pain hx bone spur COMPARISON: None FINDINGS: Three views show no evidence of acute displaced fracture or dislocation of the visualized bony architecture. The joint spaces appear normal. IMPRESSION: Unremarkable exam. Reviewed, Interpreted and Dictated by Reji Lei MD Transcribed by Opal Rojas Authenticated and [facility]
== END 2024-01-11 23:59 | disposition home or self-care (01) ==
LOC: RAD 13:11
PROVIDERS: PCP Nurse Practitioner Family; Visit Provider Nurse Practitioner
DX: M79.671 Pain in right foot (principal); M79.672 Pain in left foot
CPT/HCPCS: 73630

== ENCOUNTER 2024-03-01 10:00 | Outpatient (RCR) | payer BC, SELFPAY ==
--- NOTE | 2024-01-23 20:38 | HMH.PTOPEV ---
PT Outpatient Evaluation Rehab PT Outpatient Evaluation Start: 01/23/24 20:22 Freq: Status: Active Protocol: Document 01/20/24 17:00 RAND (Rec: 01/23/24 20:38 RAND [id number]) E-signed By Bull Matthew, PT Outpatient Therapy Subjective History Subjective History Patient is a 43 year old female presenting to outpatient PT with reports of B foot/ankle pain. Referred for B plantar fasciitis. Symptoms of insidious onset starting approx 1 year ago. Most recent imaging unremarkable. Comorbidities include psoriatic arthritis, partial thyroidectomy and hx of migraines. New diagnosis of cancer in past 12 No months? Chief Complaint Pain,Stiff Symptom Type Throb,Sharp Symptoms Relieved By Rest/Positioning,Prescription Meds Symptoms Aggravated By Standing,Physical Activity, Walking Prior Functional Limitations None Current Functional Limitations Standing,Walking Symptom Description Constant but Variable Level of pain today (0-10) 3 Pain scale - at its best (0-10) 0 Pain scale - at its worst (0-10) 7 Ankle/Foot Eval Gait Observation General Gait Pattern Observation No Deviations/Normal Palpation Tenderness bilateral Ankle/Foot Palpation Findings Tenderness Ankle/Foot Palpation Overall Comment B calcaneal tubercles 3/4 ROM left Ankle/Foot Dorsiflexion w/Knee Extended -6 Active Range Motion (degrees) Ankle/Foot Plantar Flexion Active Range WNL of Motion (degrees) Ankle/Foot Eversion Active Range of WNL Motion (degrees) Ankle/Foot Inversion Active Range of 6 Motion (degrees) Ankle/Foot ROM Limitations Soft Tissue Tightness Great Toe ROM Reason Not Measured Within Functional Limits right Ankle/Foot Dorsiflexion w/Knee Extended -8 Active Range Motion (degrees) Ankle/Foot Plantar Flexion Active Range WNL of Motion (degrees) Ankle/Foot Eversion Active Range of WNL Motion (degrees) Ankle/Foot Inversion Active Range of 13 Motion (degrees) Great Toe ROM Reason Not Measured Within Functional Limits MMT bilateral Ankle Dorsiflexion Strength Grade 5 Normal Ankle Plantarflexion Strength Grade 5 Normal Foot Eversion Strength Grade 4 Good Foot Inversion Strength Grade 4 Good Special Tests Ankle Anterior Drawer Test Negative Left,Negative Right Talar Tilt Test Negative Left,Negative Right Foot Interdigital Neuroma Test Negative Left,Negative Right Lower Extremity Functional Index Activities Today, do you or would you have any difficulty at all with: a.Any of your usual work, housework or Quite a bit of difficulty school activities b. Your usual hobbies, recreational or Quite a bit of difficulty sporting activities c. Getting into or out of the bath Moderate difficulty d. Walking between rooms Moderate difficulty e. Putting on your shoes or socks Extreme difficulty or unable to perform activity f. Squatting Extreme difficulty or unable to perform activity g. Lifting an object, like a bag of Extreme difficulty or unable groceries from the floor to perform activity h. Performing light activities around A little bit of difficulty your home i. Performing heavy activities around Extreme difficulty or unable your home to perform activity j. Getting into or out of a car Moderate difficulty k. Walking 2 blocks Extreme difficulty or unable to perform activity l. Walking a mile Extreme difficulty or unable to perform activity m. Going up or down 10 stairs (about 1 Extreme difficulty or unable flight of stairs) to perform activity n. Standing for 1 hour Extreme difficulty or unable to perform activity o. Sitting for 1 hour No difficulty p. Running on even ground Extreme difficulty or unable to perform activity q. Running on uneven ground Extreme difficulty or unable to perform activity r. Making sharp turns while running fast Extreme difficulty or unable to perform activity s. Hopping Extreme difficulty or unable to perform activity t. Rolling over in bed Moderate difficulty LEFI Score Lower Extremity Functional Index Score 17 Outpatient Therapy Assessment Impairments Problems/Impairmments Palpation Tenderness,Impaired Range of Motion,Impaired Strength,Impaired Walking, Impaired Standing,Impaired Household Care,Impaired Stair Climbing,Impaired Incline Stepping,Impaired Stepping on Uneven Surface,Subjective C/O Pain Prognosis Rehab Potential Good Clinical Impression Consistent with Diagnosis Yes Short Term Goals Number of Weeks 2 Decrease Subjective C/O Pain Yes: 01/19 at worst Patient to be Ind w/ HEP Yes Sulfide Head Operator Goals Number of Weeks 4-6 Decreased Palpation Tenderness Yes: 1 Increase Range of Motion Yes: WNL Increase Strength Yes: 01/14 grossly Increase Ability to Walk Yes: 1 hr without difficulty Increase Ability to Stand Yes: Improve Ability For Household Care Yes Decrease Subjective C/O Pain Yes: 10/22 at worst Outpatient Therapy Plan of Care Treatment Plan May Include Therapeutic Exercise Including Home Yes Exercise Program Manual Therapy Techniques Yes Neuromuscular Re-education Yes Therapeutic Activities to Return to Yes Previous Functional/Work Level Gait Training Yes ADL/Self Care Education Yes Dry Needling Yes Thermal Modalities Yes Electrical Stimulation Yes Ultrasound/Phonophoresis Yes Iontophoresis Yes Orthotics/Bracing/Splinting Yes Vasopneumatic Compression Pump Yes Massage Yes Eval/Re-Eval Yes Frequency Times per week 2 Duration Number of Weeks 4-6 Addendums This patient is a candidate for social No or vocational rehab? Patient/Guardian verbally acknowledges Yes understanding of treatment program and consents to further treatment? Patient/Guardian verbally acknowledges Yes understanding of diagnosis, prognosis and goals for treatment? Eval Complexity PT Charges 55729 - Moderate Complexity Shoulder/Elbow Eval Shoulder Objective Measurements Elbow Objective Measurements PHYSICIAN CERTIFICATION: I certify the specified therapy services for Kylee Adame are required, authorized, and reviewed every 30 days.
== END 2024-03-01 11:30 | disposition home or self-care (01) ==
LOC: PT 10:00
PROVIDERS: Visit Provider Nurse Practitioner
DX: M79.672 Pain in left foot (principal); M79.671 Pain in right foot; M72.2 Plantar fascial fibromatosis
CPT/HCPCS: 97035; 97110; 97163

== ENCOUNTER 2024-04-19 09:32 | Outpatient (CLI) | payer BC, SELFPAY ==
[2024-04-19 17:02] LABS: Basophils # 0.1 K/mm3 (0-0.2); Basophils % 0.7 % (0.1-2.0); Eosinophils # 0.3 K/mm3 (0.0-0.4); Eosinophils % 3.3 % (0.1-12.0); Hematocrit 39.5 % (37.0-47.0); Hemoglobin 13.2 g/dL (12.2-16.2); Lymphocytes # 1.8 K/mm3 (0.7-4.5); Lymphocytes % 21.9 % (10-50); Mean Corpuscular HGB Conc 33.3 g/dL (31.8-35.4); Mean Corpuscular Hemoglobin 29.2 pg (27.0-31.2); Mean Corpuscular Volume 87.5 fl (81-99); Mean Platelet Volume 8.9 fl (7.4-10.4); Monocytes # 0.4 K/mm3 (0.1-1.0); Monocytes % 5.1 % (1.7-9.3); Neutrophils # 5.8 K/mm3 (1.8-7.8); Platelet Count 356 K/mm3 (142-424); Red Blood Count 4.52 M/mm3 (4.20-5.40); Red Cell Distribution Width 14.4 % (11.5-17.5); White Blood Count 8.4 K/mm3 (4.8-10.8)
[2024-04-19 17:34] LABS: Alanine Aminotransferase 20 U/L (12-78); Albumin Level 3.8 g/dl (3.5-5.0); Albumin/Globulin Ratio 1.2 (1.1-1.8); Alkaline Phosphatase 92 U/L (38-126); Aspartate Amino Transferase 20 U/L (14-36); Bilirubin,Total 0.4 mg/dl (0.2-1.3); Blood Urea Nitrogen 13 mg/dl (7-17); Calcium 8.8 mg/dl (8.4-10.2); Carbon Dioxide 21 mmol/L (22.0-30.0); Chloride 110 mmol/L (98-107); Chol/HDL Ratio 5.3 (1-3.5); Cholesterol 218 mg/dl (140-200); Estimated Glomerular Filt Rate 91 ml/min (>60); GFR (African American) 111 ML/MIN (>60); Globulin 3.1 g/dL (1.3-3.2); Glucose 84 mg/dl (74-100); HDL Cholesterol 41 mg/dl (40-60); Sodium 141 mmol/L (136-145); Total Protein,Serum 6.9 g/dl (6.3-8.2); Triglycerides 191 mg/dl (30-150); VLDL Cholesterol 38 mg/dL (0-40)
[2024-04-19 17:47] LABS: 25-OH Vitamin D, Total 27.3 ng/mL (30-100)
[2024-04-19 17:54] LABS: Direct LDL Cholesterol 111.54 mg/dL (100-129)
[2024-04-19 18:06] LABS: Thyroid Stimulating Hormone 2.11 uIU/mL (0.465-4.68)
[2024-04-20 11:47] LABS: HIV (1&2) Antibody Rapid NONREACTIVE (NONREACTIVE)
[2024-04-21 08:55] LABS: HCV Ab Non Reactive (Non Reactive)
== END 2024-04-19 23:59 | disposition home or self-care (01) ==
LOC: LAB.DROPOF 04-20 09:33
PROVIDERS: PCP Nurse Practitioner Family; Visit Provider Nurse Practitioner Family
DX: E03.9 Hypothyroidism, unspecified (principal); Z00.00 Encounter for general adult medical examination without abnormal findings
CPT/HCPCS: 80050; 80053; 80061; 82306; 84443; 85025

== ENCOUNTER 2024-08-15 09:15 | Outpatient (CLI) | payer BC, SELFPAY ==
[2024-08-15 16:21] LABS: Basophils # 0.1 K/mm3 (0-0.2); Eosinophils # 0.4 K/mm3 (0.0-0.4); Eosinophils % 4.4 % (0.1-12.0); Hematocrit 42.8 % (37.0-47.0); Hemoglobin 14.2 g/dL (12.2-16.2); Lymphocytes % 33.8 % (10-50); Mean Corpuscular HGB Conc 33.2 g/dL (31.8-35.4); Mean Corpuscular Hemoglobin 27.7 pg (27.0-31.2); Mean Corpuscular Volume 83.4 fl (81-99); Mean Platelet Volume 8.3 fl (7.4-10.4); Monocytes # 0.4 K/mm3 (0.1-1.0); Monocytes % 4.4 % (1.7-9.3); Neutrophils % 56.5 % (37.0-80.0); Platelet Count 341 K/mm3 (142-424); Red Blood Count 5.13 M/mm3 (4.20-5.40); White Blood Count 8.8 K/mm3 (4.8-10.8)
[2024-08-15 17:02] LABS: Alanine Aminotransferase 17 U/L (12-78); Albumin Level 4.1 g/dl (3.5-5.0); Albumin/Globulin Ratio 1.4 (1.1-1.8); Alkaline Phosphatase 111 U/L (38-126); Anion Gap 12.7 mEq/L (5-15); Aspartate Amino Transferase 22 U/L (14-36); Bilirubin,Total 0.5 mg/dl (0.2-1.3); Blood Urea Nitrogen 20 mg/dl (7-17); Calcium 9.1 mg/dl (8.4-10.2); Carbon Dioxide 22 mmol/L (22.0-30.0); Chloride 109 mmol/L (98-107); Chol/HDL Ratio 5.7 (1-3.5); Cholesterol 241 mg/dl (140-200); Estimated Glomerular Filt Rate 78 ml/min (>60); GFR (African American) 94 ML/MIN (>60); Globulin 2.9 g/dL (1.3-3.2); Glucose 123 mg/dl (74-100); HDL Cholesterol 42 mg/dl (40-60); Potassium 3.7 mmoL/L (3.5-5.1); Sodium 140 mmol/L (136-145); Triglycerides 181 mg/dl (30-150); VLDL Cholesterol 36 mg/dL (0-40)
[2024-08-15 17:12] LABS: Direct LDL Cholesterol 153.07 mg/dL (100-129)
[2024-08-16 12:42] LABS: Hemoglobin A1C 5.5 % (4.0-6.0)
== END 2024-08-15 23:59 | disposition home or self-care (01) ==
LOC: LAB.DROPOF 08-16 09:30
PROVIDERS: PCP Family Medicine; Visit Provider Family Medicine
DX: E03.9 Hypothyroidism, unspecified (principal); F41.9 Anxiety disorder, unspecified; R73.09 Other abnormal glucose
CPT/HCPCS: 80050; 80053; 80061; 83036; 84436; 84443; 85025

== ENCOUNTER 2024-09-27 10:41 | Outpatient (CLI) | payer MEDICAID, SELFPAY | END 2024-09-27 23:59 | disposition home or self-care (01) | LOC: LAB.DROPOF 10-01 10:42 | PROVIDERS: PCP Family Medicine; Visit Provider Nurse Practitioner | DX: H66.92 Otitis media, unspecified, left ear (principal) | CPT/HCPCS: 87070; 87077; 87186 ==

== ENCOUNTER 2025-06-27 11:47 | Outpatient (CLI) | payer MEDICAID, SELFPAY ==
[2025-06-27 19:28] LABS: Hematocrit 43.8 % (37.0-47.0); Hemoglobin 14.4 g/dL (12.2-16.2); Immature Granulocytes % 0.4 %; Mean Corpuscular HGB Conc 32.9 g/dL (31.8-35.4); Mean Corpuscular Hemoglobin 27.3 pg (27.0-31.2); Mean Corpuscular Volume 83.0 fl (81-99); Nucleated Red Blood Cells % 0 %; Platelet Count 399 K/mm3 (142-424); Red Blood Count 5.28 M/mm3 (4.20-5.40); Red Cell Distribution Width-SD 39.5 fL; White Blood Count 11.3 K/mm3 (4.8-10.8)
[2025-06-27 20:00] LABS: Alanine Aminotransferase 26 U/L (12-78); Albumin Level 4.5 g/dl (3.5-5.0); Albumin/Globulin Ratio 1.6 (1.1-1.8); Alkaline Phosphatase 151 U/L (38-126); Anion Gap 21.7 mEq/L (5-15); Aspartate Amino Transferase 26 U/L (14-36); Bilirubin,Total 0.8 mg/dl (0.2-1.3); Blood Urea Nitrogen 16 mg/dl (7-17); Calcium 9.2 mg/dl (8.4-10.2); Carbon Dioxide 22 mmol/L (22.0-30.0); Chloride 99 mmol/L (98-107); Cholesterol 229 mg/dl (140-200); Creatinine,Serum 0.80 mg/dl (0.52-1.04); Estimated Glomerular Filt Rate 78 ml/min (>60); GFR (African American) 94 ML/MIN (>60); Globulin 2.8 g/dL (1.3-3.2); Glucose 106 mg/dl (74-100); HDL Cholesterol 39 mg/dl (40-60); Potassium 4.7 mmoL/L (3.5-5.1); Sodium 138 mmol/L (136-145); Total Protein,Serum 7.3 g/dl (6.3-8.2); Triglycerides 264 mg/dl (30-150)
[2025-06-27 20:31] LABS: Thyroid Stimulating Hormone 3.21 uIU/mL (0.465-4.68)
[2025-06-27 20:49] LABS: Hepatitis C Ab Qual. W/ RFX NEGATIVE (Negative)
[2025-06-28 10:13] LABS: Hemoglobin A1C 5.8 % (4.0-6.0)
[2025-06-29 07:10] LABS: Hepatitis B Surface Antigen Negative (Negative)
== END 2025-06-27 23:59 ==
LOC: LAB.DROPOF 07-01 11:48
PROVIDERS: PCP Nurse Practitioner Family; Visit Provider Nurse Practitioner Family
DX: E03.9 Hypothyroidism, unspecified (principal); Z11.4 Encounter for screening for human immunodeficiency virus [HIV]; Z11.59 Encounter for screening for other viral diseases; R73.01 Impaired fasting glucose
CPT/HCPCS: 80053; 80061; 83036; 84443; 85025; 86803; 87340; 87389